=== PATIENT | male | born 1960 | race Caucasian/White ===

== ENCOUNTER 2018-12-03 15:10 | Inpatient (IN) | payer SELFPAY ==
[~2018-12-03] VITALS: Ht 180.3 cm; Wt 90.7 kg
[2018-12-03 15:27] VITALS: BP_SYST 158
[2018-12-03 16:59] LABS: BASOPHILS % (AUTO) 0.1 % (0.0-2.0); HEMATOCRIT 42.6 % (36-54); HEMOGLOBIN 14.2 g/dL (14.0-18.0); LYMPHOCYTES # (AUTO) 0.6 K/uL (1.0-5.5); LYMPHOCYTES % (AUTO) 3.9 % (20.5-51.5); MEAN CORPUSCULAR HEMOGLOBIN 31 pg (27-31); MEAN CORPUSCULAR HGB CONC 34 % (32-36); MEAN CORPUSCULAR VOLUME 92 fL (79.0-98.0); MONOCYTES # (AUTO) 0.3 K/uL (0.0-1.0); MONOCYTES % (AUTO) 1.9 % (1.7-9.3); NEUTROPHILS # (AUTO) 14.9 K/uL (1.8-7.7); NEUTROPHILS % (AUTO) 94.1 % (40.0-70.0); PLATELET COUNT (AUTO) 152 K/uL (130-430); RED BLOOD CELL COUNT(AUTO) 4.63 MIL/uL (4.2-6.2); RED CELL DISTRIBUTION WIDTH 14.5 % (9.0-15.0); WHITE BLOOD COUNT (AUTO) 15.9 K/uL (4.8-10.8)
[2018-12-03 17:13] LABS: CALCIUM 8.9 mg/dL (8.4-11.0); CREATININE 1.57 mg/dL (0.55-1.30); POTASSIUM 3.9 mmol/L (3.5-5.1)
[2018-12-03 17:21] LABS: ALBUMIN 3.9 g/dL (3.4-4.8); TOTAL BILIRUBIN 0.5 mg/dL (0.0-1.0)
[2018-12-03] MEDS ORDERED: NACL 0.9% 1,000 ML IV ONE ×2 (17:45→18:00)
[2018-12-03] MEDS ORDERED: ASPIRIN 81 MG TAB.CHEW PO ONE (17:45)
--- NOTE | 2018-12-03 17:45 | NUR ---
Placed in room 5. Placed on manager community development, blood pressure machine and pulse oximeter. To gown for exam. Side rails up. Report given to Hannah FERNANDEZ.
--- NOTE | 2018-12-03 17:47 | NUR ---
Pt brought by self, A&Ox4, pt presents to ER with generalizzed red / bright skin rash, pt states he has a parasite in the skin , pt c/o bodyaches, respirations even and unlabored, afebrile , pt ambulatory, denies other complains , will continue to monitor.
--- NOTE | 2018-12-03 17:57 | NUR ---
ER at bedside examining patient.
[2018-12-03] MEDS ORDERED: VANCOMYCIN HCL 1,000 MG in NS 250 ML IV ONE (18:15)
[2018-12-03] MEDS ORDERED: METOPROLOL TARTRATE 25 MG TABLET PO ONE (18:15)
[2018-12-03] MEDS ORDERED: LORazepam 2 MG/ML VIAL IVP ONE (18:15)
[2018-12-03 18:28] LABS: PROTHROMBIN TIME 10.5 SECS (9.5-12.5)
--- NOTE | 2018-12-03 18:30 | NUR ---
# 20 gauge angiocath placed to LEFT AC. Use of asceptic technique. Opsite placed over site. Blood return noted. Blood for lab drawn from site. Flushed with 10 cc of normal saline. No evidence of infiltration noted. Patient tolerated well. iv ns 1 liter bolus and vancomycin @ 125ml/hr infusing. ativan 2 mg ivp administered.
[2018-12-03] MEDS ORDERED: VANCOMYCIN HCL 1000 MG/VIAL IV ONE (18:39)
[2018-12-03] MEDS ORDERED: DIPHENHYDRAMINE INJ 50 MG/ML VIAL IVP ONE (18:45)
[2018-12-03] MEDS ORDERED: ENOXAPARIN SODIUM 100 MG/ML SYRINGE SUBCUT ONE (18:45)
--- NOTE | 2018-12-03 19:05 | NUR ---
patient snoring, no s/s of distress. ivf still infusing. endorsed care to Bayron FERNANDEZ.
--- NOTE | 2018-12-03 19:32 | NUR ---
Unable to obtain meds from patient and daughter. Patient is sleeping and daughter does not have any information regarding current rx
--- NOTE | 2018-12-03 19:59 | NUR ---
Patient will be admitted to care of Dr. Mancia. Admitted to ICU unit. Belongings list completed. Summary report printed. Report will be given at bedside.
--- NOTE | 2018-12-03 20:15 | NUR ---
Pt will be an ICU hold staff is available
--- NOTE | 2018-12-03 21:29 | NUR ---
Pt is able to provide urine sample using a urinal.
[2018-12-03 21:32] LABS: BILIRUBIN,URINE NEGATIVE (NEGATIVE); BLOOD, URINE NEGATIVE (NEGATIVE); COLOR,URINE YELLOW (YELLOW); GLUCOSE,URINE NEGATIVE (NEGATIVE); KETONES,URINE NEGATIVE (NEGATIVE); LEUKOCYTE ESTERASE ,URINE NEGATIVE (NEGATIVE); NITRITE, URINE NEGATIVE (NEGATIVE); PROTEIN URINE NEGATIVE (NEGATIVE); UROBILINOGEN,URINE 0.2 (0.2-1.0)
[2018-12-03] MEDS ORDERED: MORPHINE 4 MG/ML INJ. SYRINGE IVP PRN (21:45)
[2018-12-03] MEDS ORDERED: NITROGLYCERIN 0.4 MG TAB.SUBL SL PRN (21:45)
[2018-12-03] MEDS ORDERED: MORPHINE 2 MG/ML INJ. SYRINGE IVP PRN (21:45)
[2018-12-03] MEDS ORDERED: *HEPARIN PER PHARMACY XX ONE (21:45)
[2018-12-03 21:48] LABS: BARBITURATE, URINE NEGATIVE (NEG <=200); BENZODIAZEPINE, URINE NEGATIVE (NEG <=150); CANNABINOID, URINE NEGATIVE (NEG <=50); COCAINE, URINE NEGATIVE (NEG <=150); METHAMPHETAMINES SCREEN,URINE POSITIVE (NEG <=500); OPIATE, URINE POSITIVE (NEG <=100); PHENCYCLIDINE SCREEN,URINE NEGATIVE (NEG <=25); UR TRICYCLIC ANTIDEPRESSANTS NEGATIVE (NEG <=300); URINE AMPHETAMINE POSITIVE (NEG <=500); URINE METHADONE NEGATIVE (NEG <=200); URINE OXYCODONE SCREEN NEGATIVE (NEG <=100); URINE PROPOXYPHENE SCREEN NEGATIVE (NEG <=300)
[2018-12-03 21:56] LABS: CLARITY/URINE SLIGHTLY HAZY (CLEAR)
[2018-12-03] MEDS ORDERED: ONDANSETRON HCL 4 MG/2 ML VIAL IVP PRN (22:00)
[2018-12-03] MEDS ORDERED: ACETAMINOPHEN 325 MG TABLET PO PRN (22:00)
[2018-12-03] MEDS: DIPHENHYDRAMINE INJ 50 MG/ML VIAL IVP SCH (22:00)
--- NOTE | 2018-12-03 22:06 | NUR ---
Pt is sleeping in bed, no acute distress noted at this time.
[2018-12-03 22:08] LABS: BACTERIA,URINE FEW /HPF (None Seen); RBC,URINE 0-3 /HPF (0-3)
[2018-12-03 22:09] LABS: MUCUS,URINE 3+ /LPF (None Seen); OTHER CASTS, URINE WBC CASTS 1+ /LPF (None Seen)
[2018-12-03] MEDS ORDERED: ASPIRIN 81 MG TAB.CHEW PO SCH (22:15)
--- NOTE | 2018-12-03 22:45 | NUR ---
Transfer to ICU via ACLS protocol. Licensed nurse present. IV present no signs or symptoms of infiltration.
--- NOTE | 2018-12-03 22:45 | NUR ---
ADMISSION Pt admitted from ER to ICU5, via gurney accompanied by ER staff. IV infusing LAC. 20ga angiocath LAC placed by ER staff, no redness or swelling noted at site. Red rash noted on abdomen. Pt arouses to verbal stimuli, but remains sleeping. Does not open eyes.
--- NOTE | 2018-12-03 22:50 | NUR ---
PAGED: I PAGED DR. GUERIN I SPOKE WITH TRUDY
--- NOTE | 2018-12-03 22:52 | NUR ---
DR. APOORVA GUERIN CALLED BACK JUST NOW
--- NOTE | 2018-12-03 22:55 | NUR ---
DR APOORVA Barnett notified regarding elevated Trop., No new orders received.
[2018-12-03 23:00] VITALS: BP_SYST 124
[2018-12-03] MEDS ORDERED: HEPARIN 25,000 UNITS in 250 ML PREMIX IV PRN (23:00)
[2018-12-03] MEDS ORDERED: HEPARIN SODIUM,PORCINE 2000 UNITS/0.4 ML BOLUS IVP PRN (23:00)
[2018-12-03] MEDS ORDERED: HEPARIN SODIUM,PORCINE 3000 UNITS/0.6 ML BOLUS IVP PRN (23:00)
[2018-12-03] MEDS ORDERED: cloNIDine HCL 0.1 MG TABLET PO PRN (23:15)
[2018-12-03 23:55] VITALS: BP_SYST 134
[2018-12-04] VITALS (17 sets, daily range): BP systolic 110–144
--- NOTE | 2018-12-04 00:58 | NUR ---
CONSULT: CONSULT CALLED FOR DR. BROOKS I SPOKE WITH ELBERT COON REASON FOR CONSULT: ENDOCARDITIS REQUESTING CONSULT: DR BLACK PRODUCTION CONTROL CLERK PHONE NUMBER: [phone]
[2018-12-04] MEDS: DIPHENHYDRAMINE INJ 50 MG/ML VIAL IVP SCH ×4 (01:00→10:00)
--- NOTE | 2018-12-04 01:05 | NUR ---
DR. APOORVA GUERIN IS AWARE OF CONSULT
[2018-12-04] MEDS: LR 1,000 ML IV SCH ×3 (01:39→18:19)
[2018-12-04 06:29] LABS: BASOPHILS % (AUTO) 0.1 % (0.0-2.0); EOSINOPHILS % (AUTO) 0.2 % (0.0-4.0); HEMATOCRIT 37.5 % (36-54); HEMOGLOBIN 12.5 g/dL (14.0-18.0); LYMPHOCYTES # (AUTO) 1.7 K/uL (1.0-5.5); LYMPHOCYTES % (AUTO) 20.9 % (20.5-51.5); MEAN CORPUSCULAR HEMOGLOBIN 31 pg (27-31); MEAN CORPUSCULAR HGB CONC 33 % (32-36); MEAN CORPUSCULAR VOLUME 93 fL (79.0-98.0); MONOCYTES # (AUTO) 0.6 K/uL (0.0-1.0); MONOCYTES % (AUTO) 7.7 % (1.7-9.3); NEUTROPHILS # (AUTO) 5.8 K/uL (1.8-7.7); NEUTROPHILS % (AUTO) 71.1 % (40.0-70.0); PLATELET COUNT (AUTO) 119 K/uL (130-430); RED BLOOD CELL COUNT(AUTO) 4.04 MIL/uL (4.2-6.2); RED CELL DISTRIBUTION WIDTH 14.2 % (9.0-15.0); WHITE BLOOD COUNT (AUTO) 8.2 K/uL (4.8-10.8)
[2018-12-04 06:34] LABS: CALCIUM 7.9 mg/dL (8.4-11.0); CREATININE 1.03 mg/dL (0.55-1.30); POTASSIUM 4.1 mmol/L (3.5-5.1)
[2018-12-04 06:43] LABS: ALBUMIN 2.7 g/dL (3.4-4.8); TOTAL BILIRUBIN 0.5 mg/dL (0.0-1.0)
--- NOTE | 2018-12-04 07:00 | NUR ---
ASSESSMENT Pt not willing to answer admission questions.
[2018-12-04] MEDS: VANCOMYCIN HCL 1,000 MG in NS 250 ML IV SCH ×2 (08:25→15:10)
[2018-12-04] MEDS: ASPIRIN 81 MG TAB.CHEW PO SCH (08:26)
--- NOTE | 2018-12-04 08:30 | NUR ---
ON DUTY RECEIVED THIS A/OX3. SLEEPING ON BED, EASY TO AROUSABLE. VS STABLE EXCEPT HR IS LOW. PT SPEAKS FULL SENTENCES, FOLLOWS COMMAND, DENIES KRAUS AND DIZZINESS. NO SOB. BREATHING EVEN ON RA. HR IS RADHA, NO CP. GEOPHYSICAL PROSPECTOR CAME TO ASSESSED PT BEDSIDE. SISTER CALLED FROM OTHER STATE TO INQUIRE PT'S STATUS. PHONE WAS INSTALLED IN PT ROOM, ADVISED SISSTER TO CALL BACK LATE AND TALK WITH PT DIRECTLY. EKG DONE BEDSIDE WELL. Addendum: 12/04/18 at 0839 by Thirty Brady Bethea RN CHARTED BY TAYLOR PAEZ RN/MARI/MASTER STAFFIN Karisma Kidz.
--- NOTE | 2018-12-04 09:54 | NUR ---
Nutrition Update Onel Scale 16 noted. Pt admitted for acute FL. Diet: cardiac BMI: 27.9 kg/m2 RD to follow per nutrition care standards.
--- NOTE | 2018-12-04 14:32 | NUR ---
Jeweler Apprentice: met with ICU pt. and conduct a DCPA FIRE AND SAFETY HELPER met with pt. who was happy to see FIRE AND SAFETY HELPER. He has his daughter, Elina Long present and allowed her to stay during interview. Pt and daughter stated admissions tried to fill out some paperwork to see if he qualified for Medical, pt. does not. Pt. was wondering if there was anything that can be done. 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 He was provided with low cost clinic, substance abuse, mental health and durable power of attny. FIRE AND SAFETY HELPER saw an email stating pt. does not qualify for Medical, but Nerissa Perry will refer to S[facility] for follow up. FIRE AND SAFETY HELPER conducted a DCPA and will remain available as needed.
--- NOTE | 2018-12-04 16:15 | NUR ---
LAB CALLED AND REPORTED CRITICAL LAB: TROP 0.173. GLASS PROCESSING WORKER APOORVA WAS CALLED AND REPORT GIVEN. DR. GUERIN ORDERED TO TRANSFER PT TO TELE. CHARGE NURSE SYLVESTER WAS NOTIFIED. DR. BLACK CAME TO SEE PT.
--- NOTE | 2018-12-04 19:40 | NUR ---
PT TRANSFERRED TO TELE BED 106A AT THIS TIME. REPORT GIVEN TO TIMOTHY FERNANDEZ TO ASSUME CARE. PT AAOX4, VSS, NO S/S OF ACUTE DISTRESS NOTED.
--- NOTE | 2018-12-04 19:45 | NUR ---
OPENING NOTES RECEIVED PATIENT FROM ICU AAO X4. BREATHING UNLABORED ON ROOM AIR. DENIES PAIN AT THIS TIME.. BED IN LOWEST LOCKED POSITION. CALL LIGHT WITH IN REACH.
--- NOTE | 2018-12-04 20:36 | NUR ---
MED PASS PATIENT DUE MEDICATION GIVEN. VITAL SIGNS STABLE.
--- NOTE | 2018-12-04 23:31 | NUR ---
ATB PATIENT DUE ANTIBIOTIC IN. IV LINE GOOD AND PATENT.
[2018-12-05 00:50] VITALS: BP_SYST 142
[2018-12-05] MEDS: VANCOMYCIN HCL 1,000 MG in NS 250 ML IV SCH ×2 (01:22→07:56)
--- NOTE | 2018-12-05 02:10 | NUR ---
ROUNDS PATIENT RESTING IN BED. SNORING INTERMITTENTLY. IVF INFUSING.
--- NOTE | 2018-12-05 04:00 | NUR ---
ROUNDS CONDITION UNCHANGED. CALL LIGHT WITH IN REACH.
--- NOTE | 2018-12-05 06:50 | NUR ---
CLOSING NOTES PATIENT RESTING IN BED. BREATHING UNLABORED. IVF INFUSING WITH IV LINE INTACT. BED IN LOWEST LOCKED POSITION. CALL LIGHT WITH IN REACH.
[2018-12-05 07:26] LABS: BASOPHILS % (AUTO) 0.2 % (0.0-2.0); EOSINOPHILS # (AUTO) 0.1 K/uL (0.0-0.4); EOSINOPHILS % (AUTO) 1.4 % (0.0-4.0); HEMATOCRIT 40.8 % (36-54); HEMOGLOBIN 13.8 g/dL (14.0-18.0); LYMPHOCYTES % (AUTO) 27.1 % (20.5-51.5); MEAN CORPUSCULAR HEMOGLOBIN 31 pg (27-31); MEAN CORPUSCULAR HGB CONC 34 % (32-36); MEAN CORPUSCULAR VOLUME 93 fL (79.0-98.0); MONOCYTES # (AUTO) 0.5 K/uL (0.0-1.0); MONOCYTES % (AUTO) 7.4 % (1.7-9.3); NEUTROPHILS # (AUTO) 4.6 K/uL (1.8-7.7); NEUTROPHILS % (AUTO) 63.9 % (40.0-70.0); PLATELET COUNT (AUTO) 105 K/uL (130-430); RED BLOOD CELL COUNT(AUTO) 4.39 MIL/uL (4.2-6.2); RED CELL DISTRIBUTION WIDTH 14.4 % (9.0-15.0); WHITE BLOOD COUNT (AUTO) 7.2 K/uL (4.8-10.8)
[2018-12-05 07:55] VITALS: BP_SYST 145
[2018-12-05] MEDS: ASPIRIN 81 MG TAB.CHEW PO SCH (07:56)
--- NOTE | 2018-12-05 08:00 | NUR ---
Cardio With elevated troponin is aware, telemetry normal sinus edy, denies any chest pain , generalized rashes for 1 mos instructed to avoid touching and scratching it to avoid further irritation verbalized understanding., discussed medication , plan of care , hydration verbalized understanding.
[2018-12-05 08:01] LABS: ALBUMIN 2.6 g/dL (3.4-4.8); CALCIUM 7.8 mg/dL (8.4-11.0); CREATININE 0.98 mg/dL (0.55-1.30); POTASSIUM 4.1 mmol/L (3.5-5.1); THYROID STIMULATING HORMONE 3.2 uIu/mL (0.36-3.74); TOTAL BILIRUBIN 0.5 mg/dL (0.0-1.0)
[2018-12-05 08:06] LABS: VARICELLA ZOSTER IgG 742 index (Immune >165)
[2018-12-05] MEDS: LR 1,000 ML IV SCH (10:32)
--- NOTE | 2018-12-05 11:05 | NUR ---
PATIENT RESTING: Patient resting quietly. No acute distress noted. Vital signs within normal range., anxious to go home.
[2018-12-05 12:08] VITALS: BP_SYST 135
[2018-12-05 12:40] VITALS: BP_SYST 135
--- NOTE | 2018-12-05 13:50 | NUR ---
D/C Patient Patient given medication reconciliation form and D/C instructions. Exit Care provided. Patient verbalized understanding. MD discussed with patient the results and treatment provided. Ambulatory with steady gait for discharge to home. Patient in stable condition, ID band removed. IV catheter removed, intact and dressing applied, no active bleeding Patient educated on pain management,allergies . All belongings sent with patient.
[2018-12-05] MEDS ORDERED: VANCOMYCIN HCL 1,000 MG in NS 250 ML IV SCH (14:00)
[2018-12-06 17:06] LABS: MYCOPLASMA PNEUMONIAE IgM <770 U/mL (0-769)
== END 2018-12-05 14:00 | disposition home or self-care (01) | DRG 917 ==
LOC: SED 15:10 → SIC 19:54 → STU 12-04 20:19
PROVIDERS: ADMIT Internal Medicine; ATTEND Internal Medicine
DX: T43.621A Poisoning by amphetamines, accidental (unintentional), initial encounter (principal); N17.0 Acute kidney failure with tubular necrosis; I45.81 Long QT syndrome; R00.0 Tachycardia, unspecified; F15.10 Other stimulant abuse, uncomplicated; I25.10 Atherosclerotic heart disease of native coronary artery without angina pectoris; F17.210 Nicotine dependence, cigarettes, uncomplicated; J06.9 Acute upper respiratory infection, unspecified; Y92.89 Other specified places as the place of occurrence of the external cause; I25.2 Old myocardial infarction; Z88.0 Allergy status to penicillin; Z88.1 Allergy status to other antibiotic agents; Z91.14 Patient's other noncompliance with medication regimen
CPT/HCPCS: 36415; 71045; 80053; 80061; 80202-TC; 80307; 81000-TC; 83605; 83880; 84443-TC; 84484; 85025; 85610-TC; 85651-TC; 85730-TC; 86592; 86694; 86738; 86787; 87040-TC; 87081; 87210-TC; 93005; 93306; 96361; 96365; 96366; 96372; 96375; 99285; G0378; J1200; J1650; J1956; J2060; J3370; J7050; J7120